=== PATIENT | female | born 1960 | race Caucasian/White ===

== ENCOUNTER 2020-12-20 15:15 | Outpatient (CLI) | payer BC, OTHER | END 2020-12-20 15:16 | disposition home or self-care (01) | LOC: CSHMAMMO 15:15 | PROVIDERS: ATTEND Family Medicine | DX: Z12.31 Encounter for screening mammogram for malignant neoplasm of breast (principal) | CPT/HCPCS: 77063; 77067 ==

== ENCOUNTER 2021-12-27 09:44 | Outpatient (CLI) | payer BC, OTHER | END 2021-12-27 09:45 | disposition home or self-care (01) | LOC: CSHMAMMO 09:44 | PROVIDERS: ATTEND Family Medicine | DX: Z12.31 Encounter for screening mammogram for malignant neoplasm of breast (principal); Z85.828 Personal history of other malignant neoplasm of skin | CPT/HCPCS: 77063; 77067 ==

== ENCOUNTER 2023-02-27 09:44 | Outpatient (CLI) | payer BC, OTHER | END 2023-02-27 09:45 | disposition home or self-care (01) | LOC: CSHMAMMO 09:44 | PROVIDERS: ATTEND Family Medicine | DX: Z12.13 Encounter for screening for malignant neoplasm of small intestine (principal); Z85.828 Personal history of other malignant neoplasm of skin | CPT/HCPCS: 77063; 77067 ==

== ENCOUNTER 2025-04-01 11:08 | Outpatient (CLI) | payer MEDICARE, OTHER | END 2025-04-01 11:09 | disposition home or self-care (01) | LOC: CSHMAMMO 11:08 | PROVIDERS: ATTEND Student in an Organized Health Care Education/Training Program | DX: Z12.31 Encounter for screening mammogram for malignant neoplasm of breast (principal); Z85.828 Personal history of other malignant neoplasm of skin | CPT/HCPCS: 77063; 77067 ==

== ENCOUNTER 2025-04-09 10:16 | Emergency (ER) | payer MEDICARE, OTHER ==
[2025-04-09 11:12] LABS: #Basophils 0.06 10x3/uL (0.0-0.2); #Eosinophils 0.07 10x3/uL (0.0-0.5); #Monocytes 0.74 10x3/uL (0.0-1.1); #Neutrophils 7.70 10x3/uL (1.5-8.4); %Basophils 0.6 % (0.0-2.0); %Eosinophils 0.6 % (0.0-6.0); %Lymphocytes 20.3 % (18.0-47.0); %Monocytes 6.8 % (0.0-10.0); %Neutrophils 71.2 % (40.0-75.0); Glucose, Urine (Dipstick) Normal (Negative); Hematocrit 42.5 % (34.9-44.5); Hemoglobin 14.2 g/dL (12.0-15.5); Leukocyte 500 (Negative); Mean Corpuscular Hemoglobin 29.6 pg (27.0-33.0); Mean Corpuscular Volume 88.5 fL (81.6-98.3); Platelet Count 306 10x3/uL (150-450); Protein, Urine (Dipstick) Negative (Neg-Trace); Red Blood Cell (RBC) Count 4.80 10x6/uL (3.90-5.03); Specific Gravity, Urine 1.005 (1.005-1.030); White Blood Cell (WBC) Count 10.82 10x3/uL (3.5-10.5)
[2025-04-09 11:26] LABS: Bacteria/HPF 1+ HPF (None Seen); CAUTI Indications for Culture Acute Hematuria; INR-International Normal Ratio 1.0; PTT 27.5 sec (22.0-33.0); Prothrombin Time 10.5 sec (9.5-12.1); RBC/HPF 0-3 HPF (0-3)
[2025-04-09 11:27] LABS: Urine Culture Reflex No No
[2025-04-09 11:28] LABS: ALT (SGPT) 30 U/L (Less than 34); AST (SGOT) 35 U/L (11-34); Albumin 4.3 g/dL (3.1-4.5); Alkaline Phosphatase 65 U/L (40-110); Anion Gap 12 mmol/L (10-20); BUN (Urea Nitrogen) 15 mg/dL (9.8-20.1); Bilirubin, Total 0.7 mg/dL (0.3-1.2); Calc. Creatinine Clearance 0 mL/min (70-130); Calcium 9.5 mg/dL (7.8-10.44); Carbon Dioxide 26 mmol/L (23-31); Chloride 101 mmol/L (98-107); Globulin 2.8 g/dL (2.4-3.5); Glucose 85 mg/dL (80-115); Potassium 3.8 mmol/L (3.5-5.1); Sodium 135 mmol/L (136-145)
== END 2025-04-09 18:21 | disposition home or self-care (01) ==
LOC: CSHERS 10:16
DX: N39.0 Urinary tract infection, site not specified (principal); Z79.899 Other long term (current) drug therapy
CPT/HCPCS: 74176; 80053; 81001; 85025; 85610; 85730